=== PATIENT | male | born 1975 ===

== ENCOUNTER 2018-04-24 14:19 | Emergency (ER) | payer OTHER ==
[2018-04-24 14:35] VITALS: RESP 18
[2018-04-24] MEDS ORDERED: Naproxen 550 mg Tab PO STA (14:35)
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
[2018-04-24] MEDS ORDERED: Oxycodone/Acetaminophen 5/325 mg Tab PO STA (15:25)
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
[2018-04-24 15:41] VITALS: BP 125/85; PULSE 68
[2018-04-24 15:46] VITALS: TEMP 97.6
[2018-04-24 15:47] VITALS: O2SAT 98
== END 2018-04-24 15:48 | disposition home or self-care (01) ==
LOC: ED 14:19
DX: S42.021A Displaced fracture of shaft of right clavicle, initial encounter for closed fracture (principal); W19.XXXA Unspecified fall, initial encounter; Y93.55 Activity, bike riding